=== PATIENT | male | born 1975 | race Caucasian/White ===

== ENCOUNTER 2019-04-17 11:29 | Emergency (ER) | payer OTHER ==
[2019-04-17 11:36] VITALS: RESP 18
[2019-04-17] MEDS ORDERED: KETOROLAC 30 MG/ML 1 ML VIAL IM STA (11:58)
[2019-04-17] MEDS ORDERED: MORPHINE SULFATE 4 MG/ML SYRINGE IM STA (11:58)
--- NOTE | 2019-04-17 12:05 | ED ---
General Adult HPI - General Chief complaint: Extremity Injury, Upper Stated complaint: Dislocated shoulder Time Seen by Provider: 04/17/19 11:37 Source: patient, RN notes reviewed, old records reviewed Mode of arrival: ambulatory Limitations: no limitations - History of Present Illness Initial comments: 43-year-old male presents with left shoulder injury. Patient reports that he's had multiple dislocations of the left shoulder, approximately 5 total. He states he is usually able to reduce the shoulder himself. This morning he was stretching, dislocated his left shoulder at approximately 7 AM. He presents at noon for evaluation. He states he did have some numbness in the hand but this resolved and he currently has no numbness or weakness in the hand. He denies any other symptoms. Has no chronic medical problems otherwise. - Related Data Previous Rx's Medication Instructions Recorded Ibuprofen [Motrin] 600 mg PO Q8HR PRN #24 tab 04/17/19 Allergies Allergy/AdvReac Type Severity Reaction Status Date / Time No Known Allergies Allergy Verified 04/17/19 12:13 Review of Systems ROS Statement: Those systems with pertinent positive or pertinent negative responses have been documented in the HPI. ROS Other: All systems not noted in ROS Statement are negative. Past Medical History Past Medical History: No Reported History History of Any Multi-Drug Resistant Organisms: None Reported Past Surgical History: No Surgical Hx Reported Past Psychological History: No Psychological Hx Reported Smoking Status: Never smoker Past Alcohol Use History: None Reported Past Drug Use History: Marijuana General Exam Limitations: no limitations General appearance: alert, in no apparent distress Head exam: Present: atraumatic, normocephalic Eye exam: Present: normal appearance, PERRL ENT exam: Present: normal exam Neck exam: Present: normal inspection. Absent: tenderness, meningismus Respiratory exam: Present: normal lung sounds bilaterally. Absent: respiratory distress, wheezes Cardiovascular Exam: Present: regular rate, normal rhythm GI/Abdominal exam: Present: soft. Absent: distended, tenderness, guarding Extremities exam: Present: other (Left upper extremity, deformity of the shoulder consistent with anterior dislocation, distal pulses 2+, normal director of manufacturing operations strength.) Neurological exam: Present: alert, oriented X3 Psychiatric exam: Present: normal affect, normal mood Skin exam: Present: warm, dry, intact. Absent: cyanosis, diaphoretic Course Vital Signs 04/17/19 11:34 Temperature 98.3 F Pulse Rate 74 Respiratory 18 Rate Blood Pressure 144/97 O2 Sat by Pulse 100 Oximetry Procedures - Orthopedic Joint Reduction Joint #1 Consent Obtained: verbal consent Side: left Joint Reduction Location: shoulder Analgesia: other (Intramuscular morphine and Toradol) Shoulder Technique Used (if applicable): scapula manipulation, external rotation Post-Reduction Neuro Exam: intact Post-Reduction Vascular Exam: intact Post Reduction X-Ray Obtained: Yes Post Reduction X-Ray Results: reduced Patient Tolerated Procedure: well Medical Decision Making - Medical Decision Making 43-year-old male with left anterior shoulder dislocation. Patient's given intramuscular Toradol and morphine, shoulder is able to be reduced without difficulty. Patient tolerates procedure well. Post reduction x-rays performed which is within normal limits. Patient believes he has dislocated this shoulder 5 times previously. He is given orthopedic follow-up. He will return with any worsening or changing symptoms. Disposition Clinical Impression: Anterior shoulder dislocation Disposition: HOME SELF-CARE Condition: Good Instructions (If sedation given, give patient instructions): Shoulder Dislocation (ED) Prescriptions: Ibuprofen [Motrin] 600 mg PO Q8HR PRN #24 tab PRN Reason: Pain Is patient prescribed a controlled substance at d/c from ED?: No Referrals: None,Stated [Primary Care Provider] - 1-2 days Matthias Bonilla MD [STAFF PHYSICIAN] - 1-2 days Time of Disposition: 12:33
--- NOTE | 2019-04-17 12:11 | XR ---
EXAMINATION TYPE: XR shoulder limited LT DATE OF EXAM: 04/17/2019 COMPARISON: NONE HISTORY: Pain TECHNIQUE: Three views are submitted. FINDINGS: The osseous structures are intact. There is an anterior dislocation of the humeral head. Arthropathy of the AC joint. Osseous structures intact. IMPRESSION: 1. Anterior dislocation of the left humeral head.
--- NOTE | 2019-04-17 12:51 | XR ---
EXAMINATION TYPE: XR shoulder limited LT DATE OF EXAM: 04/17/2019 COMPARISON: NONE HISTORY: Pain TECHNIQUE: Two views are submitted. FINDINGS: Post reduction view demonstrates near anatomic alignment. No obvious acute fracture. IMPRESSION: 1. Post reduction.
[2019-04-17 13:14] VITALS: BP 130/88; PULSE 77; TEMP 98
== END 2019-04-17 13:15 | disposition home or self-care (01) ==
LOC: EC 11:29
DX: M24.412 Recurrent dislocation, left shoulder (principal)
CPT/HCPCS: 73020; 99284; 23650; J2270; J1885